=== PATIENT | male | born 1990 | race American Indian/Alaskan Native ===

== ENCOUNTER 2022-04-03 18:14 | Emergency (ER) | payer OTHER ==
[2022-04-03 20:56] VITALS: BP 131/80
== END 2022-04-04 14:02 | disposition left against medical advice (07) ==
LOC: ED 18:14
DX: S09.90XA Unspecified injury of head, initial encounter (principal); Z53.21 Procedure and treatment not carried out due to patient leaving prior to being seen by health care provider; X58.XXXA Exposure to other specified factors, initial encounter; Y93.89 Activity, other specified; Y92.89 Other specified places as the place of occurrence of the external cause; Y99.8 Other external cause status